=== PATIENT | male | born 1980 | race Caucasian/White ===

== ENCOUNTER 2018-04-22 22:47 | Emergency (ER) | payer SELFPAY ==
[2018-04-22] MEDS ORDERED: PROMETHAZINE HCL 25 MG TABLET PO ONE (23:35)
[2018-04-22] MEDS ORDERED: OXYCODONE-ACETAMINOPHEN 5-325 MG TABLET PO ONE (23:35)
[2018-04-22] MEDS ORDERED: CLINDAMYCIN HCL 150 MG CAPSULE PO ONE (23:35)
--- NOTE | 2018-04-22 23:35 | ER Document Report ---
HPI - HPI Time Seen by Provider: 04/22/18 23:26 Pain Level: 4 Context: Patient is a 38 year old male that comes to the ED for chief complaint of swelling of his left lower jaw and dental pain for the past 2 days. He states there is a small area beside his gum that he thinks is an abscess. He denies drainage but he does report a foul taste in his mouth. He denies fever chills, throat pain, difficulty swallowing, headache. He reports a history of poor dentition, he has not seen a dentist in a long time. He denies any daily medications or medical history otherwise. Past Medical History - General Information source: Patient - Social History Smoking Status: Current Every Day Smoker Frequency of alcohol use: Occasional Drug Abuse: None Lives with: Spouse/Significant other Family History: Reviewed & Not Pertinent - Medical History Medical History: Negative - Immunizations Immunizations up to date: Yes Hx Diphtheria, Pertussis, Tetanus Vaccination: Yes Vertical Provider Document - CONSTITUTIONAL General Appearance: WD/WN, No Apparent Distress - INFECTION CONTROL TRAVEL OUTSIDE OF THE [place] IN LAST 30 DAYS: No - HEENT HEENT: Atraumatic, Normocephalic Mouth Diagram: 1 - Extremely poor dentition with multiple missing teeth, gingival disease, and dental breakdown throughout, in this location however there is specifically location of induration and fluctuance with some swelling, there is a small amount of purulent drainage from the area intermittently. Remaining oropharyngeal exam unremarkable. - NECK Neck: Normal Inspection - RESPIRATORY Respiratory: Breath Sounds Normal - CARDIOVASCULAR Cardiovascular: Regular Rate, Regular Rhythm - GI/ABDOMEN Gastrointestinal: Abdomen Soft, Abdomen Non-Tender - MUSCULOSKELETAL/EXTREMETIES Musculoskeletal/Extremeties: MAEW, FROM, Non-Tender - NEURO Level of Consciousness: Awake, Alert, Appropriate - DERM Integumentary: Warm, Dry, No Rash Course - Re-evaluation Re-evalutation: Patient with extremely poor dentition, gingival disease, but specifically he has an abscess over the left lower gumline laterally. This appears to have been draining a small amount, this was punctured with an 18-gauge needle after discussion with patient and he consented, and a large amount of drainage was expressed. No evidence of Amauri's angina or peritonsillar abscess. Afterwards patient was referred to do a dentist, placed on clindamycin, discussed expectations, follow-up, and return precautions. Patient states satisfaction and agreement with plan. - Vital Signs Vital signs: Temp Pulse Resp BP Pulse Ox 98.1 F 67 17 126/63 H 96 04/22/18 23:07 04/22/18 23:07 04/22/18 23:07 04/22/18 23:07 04/22/18 23:07 Procedures - Incision and Drainage Left lower gumline Type: Single Incision Method: Incision made with needle Amount/type of drainage: Moderately large amount of purulent drainage expressed/ removed with 2x2s Discharge - Discharge Clinical Impression: Dental infection, Dental abscess Condition: Stable Disposition: HOME, SELF-CARE Additional Instructions: The abscess at the gumline has been drained, this will continue to drain over the next day or 2 probably. Take the clindamycin as prescribed to completion. Follow-up with the dental clinic for additional management, see referral below, call to make your appointment. Return if you worsen including worsening swelling of the face. [facility] [address] [facility] [place], [address] Prescriptions: Clindamycin HCl [Cleocin 150 mg Capsule] 150 mg PO Q6 #56 capsule
[2018-04-23 01:24] VITALS: BP 115/67
== END 2018-04-23 01:40 | disposition home or self-care (01) ==
LOC: ER 22:47
PROC: 0C96XZZ Drainage of Lower Gingiva, External Approach (ICD-10-PCS; principal; 2018-04-22)
DX: K04.7 Periapical abscess without sinus (principal); K08.89 Other specified disorders of teeth and supporting structures; R22.0 Localized swelling, mass and lump, head; F17.200 Nicotine dependence, unspecified, uncomplicated
CPT/HCPCS: 99283

== ENCOUNTER 2018-07-14 20:32 | Emergency (ER) | payer SELFPAY ==
[2018-07-14 20:39] VITALS: BP 132/69
[2018-07-14] MEDS ORDERED: LIDOCAINE 2% VISCOUS SOLN 20 ML UDCUP PO ONE (21:15)
[2018-07-14] MEDS ORDERED: METOCLOPRAMIDE HCL ORAL SOLN 10 MG/10 ML UDCUP PO ONE (21:15)
[2018-07-14] MEDS ORDERED: FAMOTIDINE 20 MG TABLET PO ONE (21:15)
[2018-07-14] MEDS ORDERED: MAG HYDROX/AL HYDROX/SIMETH SUSP 30 ML UDCUP PO ONE (21:15)
--- NOTE | 2018-07-14 21:44 | ER Document Report ---
ED General - General Chief Complaint: Allergic Reaction Stated Complaint: POSSIBLE ALLERGIC REACTION Time Seen by Provider: 07/14/18 21:14 Notes: Patient is a 38-year-old male without chronic medical problems who presents with multiple episodes of vomiting approximately 1 hour after eating asparagus. Has never eaten asparagus in the past. States that he began to feel queasy, nauseated approximately 20-30 minutes after consuming the food. Vomited multiple times thereafter. States since multiple episodes of vomiting he has felt like his throat is swollen or tight but denies any difficulty swallowing or breathing. No history of similar symptoms in the past. Nothing is improved or worsened symptoms since onset. Throat discomfort is described as a burning, tightening discomfort. Has not seen his primary care doctor regarding today's concerns. Denies any pruritus, rash, abdominal cramping, lightheadedness or syncope. TRAVEL OUTSIDE OF THE [place] IN LAST 30 DAYS: No - Related Data Allergies/Adverse Reactions: No Known Allergies Allergy (Verified 04/23/18 02:08) Past Medical History - General Information source: Patient - Social History Smoking Status: Current Every Day Smoker Frequency of alcohol use: Occasional Drug Abuse: None Family History: Reviewed & Not Pertinent Renal/ Medical History: Denies: Hx Peritoneal Dialysis - Immunizations Immunizations up to date: Yes Hx Diphtheria, Pertussis, Tetanus Vaccination: Yes Review of Systems - Review of Systems Notes: Constitutional: Negative for fever. HENT: Positive for throat discomfort Eyes: Negative for visual changes. Cardiovascular: Negative for chest pain. Respiratory: Negative for shortness of breath. Gastrointestinal: Negative for abdominal pain, positive for nausea and vomiting Genitourinary: Negative for dysuria. Musculoskeletal: Negative for back pain. Skin: Negative for rash. Neurological: Negative for headaches, weakness or numbness. 10 point ROS negative except as marked above and in HPI. Physical Exam - Vital signs Vitals: Temp Pulse Resp BP Pulse Ox 98.8 F 64 14 132/69 H 98 07/14/18 20:38 07/14/18 20:38 07/14/18 20:38 07/14/18 20:38 07/14/18 20:38 Interpretation: Normal Notes: PHYSICAL EXAMINATION: GENERAL: Well-appearing, well-nourished and in no acute distress. HEAD: Atraumatic, normocephalic. EYES: Pupils equal round and reactive to light, extraocular movements intact, sclera anicteric, conjunctiva are normal. ENT: nares patent, oropharynx clear without exudates. Moist mucous membranes. NECK: Normal range of motion, supple without lymphadenopathy LUNGS: Breath sounds clear to auscultation bilaterally and equal. No wheezes rales or rhonchi. HEART: Regular rate and rhythm without murmurs ABDOMEN: Soft, nontender, normoactive bowel sounds. No guarding, no rebound. No masses appreciated. EXTREMITIES: Normal range of motion, no pitting or edema. No cyanosis. NEUROLOGICAL: No focal neurological deficits. Moves all extremities spontaneously and on command. PSYCH: Normal mood, normal affect. SKIN: Warm, Dry, normal turgor, no rashes or lesions noted. Course - Re-evaluation Re-evalutation: 07/14/18 21:41 Patient presents with an episode of nausea and vomiting and feeling like it is difficult for him to swallow after having eaten asparagus. Has never consumed the substance in the past. Does not have any additional symptoms to suggest an actual histamine based allergic reaction he has no urticaria, no shortness of breath, no wheezing, no syncope. Has not had any additional nausea or vomiting. No abdominal pain. On exam patient is well in appearance, watching television and in no distress. Exam is completely unremarkable. Able to tolerate oral secretions and drink fluids without any difficulty. Has had improvement of discomfort after swallowing a GI cocktail. Patient has been started on famotidine for the next several days. I have advised softs solids and clear liquids. I do not see an indication for labs or imaging. At this time will discharge with return precautions and follow-up recommendations. Verbal discharge instructions given a the bedside and opportunity for questions given. Medication warnings reviewed. Patient is in agreement with this plan and has verbalized understanding of return precautions and the need for primary care follow-up in the next 24-72 hours. - Vital Signs Vital signs: Temp Pulse Resp BP Pulse Ox 98.8 F 64 14 132/69 H 98 07/14/18 20:38 07/14/18 20:38 07/14/18 20:38 07/14/18 20:38 07/14/18 20:38 Discharge - Discharge Clinical Impression: Throat pain Nausea and vomiting Qualifiers: Vomiting type: unspecified Vomiting Intractability: non-intractable Qualified Code(s): R11.2 - Nausea with vomiting, unspecified Condition: Good Disposition: HOME, SELF-CARE Additional Instructions: Please take famotidine 40 mg morning and night until your symptoms have resolved. I advised soft solids and liquids over the next several days including things such as yogurt, pudding, Jell-O and soup. Please return to the emergency department immediately if you have ongoing vomiting, develop any difficulty breathing, vomit blood, develop a fever greater than 100.4 F, pass out, or have any other symptoms that are worrisome to you. Prescriptions: Famotidine 40 mg PO BID #60 tablet
== END 2018-07-14 21:45 | disposition home or self-care (01) ==
LOC: ER 20:32
DX: R11.2 Nausea with vomiting, unspecified (principal); R07.0 Pain in throat; F17.200 Nicotine dependence, unspecified, uncomplicated
CPT/HCPCS: 99283; J3490